=== PATIENT | male | born 1960 | race Caucasian/White ===

== ENCOUNTER 2016-12-06 21:48 | Inpatient (IN) | payer OTHER ==
[2016-12-06] MEDS ORDERED: METHYLPREDNISOLONE INJ 125 MG/2 ML SDV IV ONE (22:00)
[2016-12-06] MEDS ORDERED: DIPHENHYDRAMINE HCL 50 MG/ML VIAL IV ONE (22:00)
[2016-12-06] MEDS ORDERED: MAGNESIUM SULFATE/D5W 1 GM/100 ML RTUPB IV ONE (22:00)
[2016-12-06] MEDS ORDERED: NORMAL SALINE 1000 ML 1,000 ML IV PRN (22:01)
[2016-12-06] MEDS ORDERED: EPINEPHRINE INJ 30 MG/30 ML VIAL ONE (22:10)
[2016-12-06] MEDS ORDERED: EPINEPHRINE INJ 1 MG/10 ML DISP.SYRIN ONE (22:11)
[2016-12-06] MEDS ORDERED: EPINEPHRINE INJ/PF 1 MG/1 ML AMPULE IM PRN (22:45)
[2016-12-06 22:49] LABS: ABSOLUTE LYMPHOCYTES (AUTO) 2.1 10^3/uL (0.5-4.7); ABSOLUTE MONOCYTES (AUTO) 0.7 10^3/uL (0.1-1.4); BASOPHILS % (AUTO) 0.3 % (0-2); EOSINOPHILS % (AUTO) 0.3 % (0-6); HEMATOCRIT 41.6 % (37.9-51.0); HEMOGLOBIN 14.3 g/dL (13.5-17.0); HGB HCT DIFFERENCE 1.3; LYMPHOCYTES % (AUTO) 19.1 % (13-45); MEAN CORPUSCULAR HGB CONC 34.4 g/dL (32.0-36.0); MEAN CORPUSCULAR VOLUME 96 fl (80-97); MONOCYTES % (AUTO) 6.6 % (3-13); RED BLOOD COUNT 4.34 10^6/uL (4.35-5.55); RED CELL DISTRIBUTION WIDTH 12.7 % (11.5-14.0); SEGMENTED NEUTROPHILS % (AUTO) 73.7 % (42-78); WHITE BLOOD COUNT 10.8 10^3/uL (4.0-10.5)
[2016-12-06 22:53] LABS: ALANINE AMINOTRANSFERASE 29 U/L (21-72); ALBUMIN 3.3 g/dL (3.5-5.0); ALKALINE PHOSPHATASE 52 U/L (38-126); ANION GAP 10 (5-19); ASPARTATE AMINO TRANSFERASE 19 U/L (17-59); BILIRUBIN,DIRECT 0.3 mg/dL (0.0-0.4); BILIRUBIN,TOTAL 0.3 mg/dL (0.2-1.3); BLOOD UREA NITROGEN 19 mg/dL (7-20); CARBON DIOXIDE 17 mmol/L (22-30); CHLORIDE 111 mmol/L (98-107); CREATINE KINASE 163 U/L (55-170); CREATININE RESULT 0.93 mg/dL (0.52-1.25); GLUCOSE 114 mg/dL (75-110); POTASSIUM 3.3 mmol/L (3.6-5.0); SODIUM 137.8 mmol/L (137-145); TOTAL PROTEIN 5.6 g/dL (6.3-8.2)
[2016-12-06 23:05] LABS: CREATINE KINASE MB 0.99 ng/mL (<4.55)
[2016-12-06 23:06] LABS: TROPONIN I < 0.012 ng/mL
[2016-12-07] MEDS ORDERED: DIPHENHYDRAMINE HCL 50 MG/ML VIAL IV ONE (02:32)
--- NOTE | 2016-12-07 03:05 | ER Document Report ---
ED General - General Chief Complaint: Allergic Reaction Stated Complaint: POSSIBLE ALLERGIC REACTION Time Seen by Provider: 12/06/16 21:58 Mode of Arrival: Medic Information source: Patient Notes: 56-year-old man presents with anaphylaxis. The patient states he was cleaning shrimp and correct his left finger and noted that his fingers seem to get red. Later, he ate the shrimp for dinner and afterwards started to get itching, redness and then felt faint. He called EMS and EMS reported the patient having a blood pressure 80/60 and he was pale. They gave him 1200 cc of IV fluid and IV Pepcid and the patient had taken his own Benadryl before EMS arrived. They transported the patient to the emergency room. Initially, in the emergency room the patient had a stable blood pressure. He never complained of any difficulty swallowing or difficulty breathing. He thought that his lips were tingling. - HPI Onset: Just prior to arrival Onset/Duration: Sudden Quality of pain: No pain Severity: None Pain Level: Denies Associated symptoms: denies: Chest pain, Fever, Nausea, Vomiting, Shortness of breath Exacerbated by: Denies Relieved by: Denies Similar symptoms previously: No Recently seen / treated by doctor: No Past Medical History - General Information source: Patient - Social History Smoking Status: Smoker,Current Status Unk Cigarette use (# per day): Yes - 1 pack per day Chew tobacco use (# tins/day): No Frequency of alcohol use: Rare Drug Abuse: None Lives with: Family Family History: None Patient has suicidal ideation: No Patient has homicidal ideation: No - Medical History Medical History: Negative Surgical Hx: Negative Review of Systems - Review of Systems Constitutional: denies: Chills, Fever EENT: No symptoms reported Cardiovascular: See HPI Respiratory: No symptoms reported Gastrointestinal: No symptoms reported Genitourinary: No symptoms reported Male Genitourinary: No symptoms reported Musculoskeletal: No symptoms reported Skin: No symptoms reported Hematologic/Lymphatic: No symptoms reported Neurological/Psychological: No symptoms reported Physical Exam - Vital signs Vitals: Resp BP Pulse Ox 15 109/71 99 12/06/16 22:45 12/06/16 22:45 12/06/16 22:45 Notes: Physical exam: GENERAL: 56-year-old man, alert and oriented 3, no acute distress HEAD: Atraumatic, normocephalic. EYES: Pupils equal round and reactive to light, extraocular movements intact, sclera anicteric, conjunctiva are normal. ENT: No obvious swelling about the mouth or lips, nares patent, oropharynx clear without exudates. No swelling below the tongue. Moist mucous membranes. NECK: Normal range of motion, supple without lymphadenopathy. No stridor. LUNGS: Breath sounds clear to auscultation bilaterally and equal. No wheezes rales or rhonchi. HEART: Regular rate and rhythm without murmurs, rubs or gallops. ABDOMEN: Soft, normoactive bowel sounds. No tenderness to palpation. No guarding, no rebound. No masses appreciated. EXTREMITIES: Normal range of motion, no pitting or edema. No clubbing or cyanosis. NEUROLOGICAL: Cranial nerves II through XII grossly intact. Normal speech, normal gait. PSYCH: Normal mood, normal affect. SKIN: Warm, Dry, normal turgor, no rashes or lesions noted. Course - Re-evaluation Re-evalutation: 12/07/16 03:09 Shortly after my evaluation, the patient did become hypotensive and he was given 0.3 mg of epinephrine IM. His blood pressure was noted to be labile after that he was put on an IV epinephrine drip. Patient seemed to stabilize and was weaned off the epi drip and observed for a few hours. After a few hours , he started to complain of itching of his feet. He was given 25 mg of Benadryl and his blood pressure did go significantly lower (70 systolic) which was probably the anaphylaxis coming back. He was restarted on epinephrine drip. The patient does not complain of any chest pain, shortness of breath. He looks good on exam. He has thus far received: By EMS: IV Pepcid, 1200 cc IV fluids In the ER: IV Benadryl, IV Solu-Medrol, IM epi, IV epi drip, IV fluids, IV magnesium I discussed the case with Dr. Chavarria who will admit the patient to the ICU for anaphylaxis - Vital Signs Vital signs: Temp Pulse Resp BP Pulse Ox 15 109/69 96 12/07/16 03:39 12/07/16 03:39 12/07/16 03:39 - Laboratory Result Diagrams: 12/06/16 22:00 12/06/16 22:00 Laboratory results interpreted by me: 12/06/16 12/06/16 22:00 22:00 WBC 10.8 H RBC 4.34 L Potassium 3.3 L Chloride 111 H Carbon Dioxide 17 L Glucose 114 H Calcium 8.0 L Total Protein 5.6 L Albumin 3.3 L - Diagnostic Test Radiology reviewed: Image reviewed, Reports reviewed - EKG Interpretation by Me Rate: Normal Rhythm: NSR - EKG shows normal sinus rhythm with a ventricular rate of 76, QTc 491, no ST elevation or depression. Critical Care Note - Critical Care Note Total time excluding time spent on procedures (mins): 90 Discharge - Discharge Clinical Impression: Anaphylaxis Condition: Serious Disposition: ADMITTED INPATIENT Admitting Provider: Hospitalist - Dr. Chavarria Unit Admitted: ICU
[2016-12-07] MEDS: NORMAL SALINE 1000 ML 1,000 ML IV SCH ×2 (03:20→04:21)
[2016-12-07] MEDS: POTASSI CL 20 MEQ/50 ML RIDER 20 MEQ/50 ML RTUPB IV SCH ×2 (03:36→06:12)
[2016-12-07 04:24] LABS: ANION GAP 8 (5-19); BLOOD UREA NITROGEN 22 mg/dL (7-20); CALCIUM 8.2 mg/dL (8.4-10.2); CARBON DIOXIDE 16 mmol/L (22-30); CHLORIDE 115 mmol/L (98-107); CREATININE RESULT 0.77 mg/dL (0.52-1.25); GLUCOSE 149 mg/dL (75-110); SODIUM 138.9 mmol/L (137-145)
[2016-12-07 04:32] LABS: POTASSIUM 4.3 mmol/L (3.6-5.0)
[2016-12-07 04:34] LABS: ABSOLUTE LYMPHOCYTES (AUTO) 0.5 10^3/uL (0.5-4.7); ABSOLUTE MONOCYTES (AUTO) 0.2 10^3/uL (0.1-1.4); ABSOLUTE NEUT (AUTO) 9.5 10^3/uL (1.7-8.2); BASOPHILS % (AUTO) 0.1 % (0-2); HEMATOCRIT 42.9 % (37.9-51.0); HEMOGLOBIN 14.9 g/dL (13.5-17.0); HGB HCT DIFFERENCE 1.8; LYMPHOCYTES % (AUTO) 5.1 % (13-45); MEAN CORPUSCULAR HEMOGLOBIN 32.7 pg (27.0-33.4); MEAN CORPUSCULAR HGB CONC 34.7 g/dL (32.0-36.0); MEAN CORPUSCULAR VOLUME 94 fl (80-97); MONOCYTES % (AUTO) 1.6 % (3-13); RED BLOOD COUNT 4.55 10^6/uL (4.35-5.55); RED CELL DISTRIBUTION WIDTH 12.8 % (11.5-14.0); SEGMENTED NEUTROPHILS % (AUTO) 93.2 % (42-78); WHITE BLOOD COUNT 10.2 10^3/uL (4.0-10.5)
[2016-12-07 04:35] LABS: CREATINE KINASE MB 0.84 ng/mL (<4.55)
[2016-12-07 04:37] LABS: TROPONIN I < 0.012 ng/mL
[2016-12-07] MEDS ORDERED: DIPHENHYDRAMINE HCL 50 MG/ML VIAL IV PRN (05:17)
--- NOTE | 2016-12-07 05:17 | PDOC H&P ---
History of Present Illness Admission Date/PCP: 12/07/16 03:22 Patient complains of: Allergic reaction History of Present Illness: JANAY ADAMS is a 56 year old male without past medical history with exception to tobacco dependence and has been in his usual state of health until approximately 1 hour prior to presentation noting swelling erythema and rash initially to his finger while cleaning trip. This rash became diffuse and widespread including the lips prompting him to take Benadryl. He felt faint with palpitations denying shortness of breath or stridor. EMS reports a blood pressure of 80/60 and tachycardia he receives at 1200 mL bolus of saline, IV Pepcid. In the emergency room he receives IV Solu-Medrol and has repeated episodes of profound hypotension of 70 over palp he started on IV epinephrine resulting in improvement he is referred to the hospitalist for admission. Patient denies previous episode, no new medications and is otherwise felt well. Past Medical History Medical History: None Social History Information Source: Patient Lives with: Family Smoking Status: Current Every Day Smoker Cigarettes Packs Per Day: 1 Number of Years Smokin Frequency of Alcohol Use: None Drugs: None - Advance Directive Resuscitation Status: Full Code Family History Family History: Hypertension Parental Family History Reviewed: Yes Children Family History Reviewed: Yes Sibling(s) Family History Reviewed.: Yes Physical Exam Vital Signs: Temp Pulse Resp BP Pulse Ox 15 109/69 96 12/07/16 03:39 12/07/16 03:39 12/07/16 03:39 Intake & Output 12/05/16 12/06/16 12/07/16 11:59 11:59 11:59 Weight 93 kg Results Laboratory Results: 12/07/16 03:54 12/07/16 03:54 12/07/16 12/07/16 03:54 03:54 WBC 10.2 RBC 4.55 Hgb 14.9 Hct 42.9 MCV 94 MCH 32.7 MCHC 34.7 RDW 12.8 Plt Count 201 Seg Neutrophils % 93.2 H Lymphocytes % 5.1 L Monocytes % 1.6 L Eosinophils % 0.0 Basophils % 0.1 Absolute Neutrophils 9.5 H Absolute Lymphocytes 0.5 Absolute Monocytes 0.2 Absolute Eosinophils 0.0 Absolute Basophils 0.0 Sodium 138.9 Potassium 4.3 D Chloride 115 H Carbon Dioxide 16 L Anion Gap 8 BUN 22 H Creatinine 0.77 Est GFR ( Amer) > 60 Est GFR (Non-Af Amer) > 60 Glucose 149 H Calcium 8.2 L 12/07/16 12/07/16 03:54 03:54 Creatine Kinase 127 CK-MB (CK-2) 0.84 Troponin I < 0.012 Assessment & Plan - Diagnosis (1) Anaphylaxis Is this a current diagnosis for this admission?: Yes Plan: Secondary to shrimp, ICU admission IV fluid challenge, continuing Solu-Medrol, Pepcid, Benadryl and IV epinephrine. (2) Hypotension Is this a current diagnosis for this admission?: Yes Plan: Secondary to #1 IV fluid challenge and epinephrine support. (3) Tobacco abuse Is this a current diagnosis for this admission?: Yes Plan: Tobacco Dependence patient received tobacco cessation counseling and offered nicotine replacement options - Time Time Spent: 30 to 50 Minutes - Inpatient Certification Medical Necessity: Need Close Monitoring Due to Risk of Patient Decompensation
[2016-12-07] MEDS ORDERED: FAMOTIDINE INJ/PF 20 MG/2 ML SDV IV SCH (05:30)
[2016-12-07] MEDS: METHYLPREDNISOLONE INJ 125 MG/2 ML SDV IV SCH ×3 (06:10→22:12)
[2016-12-07] MEDS: HEPARIN SOD (PORCINE) 5,000 UNIT/ML 1 ML SYRINGE SUBCUT SCH ×3 (06:11→22:13)
--- NOTE | 2016-12-07 07:56 | EKG REPORT ---
SEVERITY:- ABNORMAL ECG - SINUS RHYTHM INCOMPLETE RIGHT BUNDLE BRANCH BLOCK : Confirmed by: Margarito Mondragon MD 07-Dec-2016 07:55:54
[2016-12-07] MEDS: IPRATROPIUM/ALBUTEROL 0.5-2.5 MG/3 ML AMPUL NEB SCH ×3 (08:29→19:36)
[2016-12-07] MEDS ORDERED: DIPHENHYDRAMINE HCL 25 MG CAPSULE PO ONE (08:30)
[2016-12-07] MEDS: FAMOTIDINE INJ/PF 20 MG/2 ML SDV IV SCH ×2 (09:58→22:12)
[2016-12-07] MEDS: DOXYCYCLINE HYCLATE 100 MG TABLET PO SCH ×2 (09:58→22:12)
[2016-12-07 12:22] LABS: CREATINE KINASE MB 0.82 ng/mL (<4.55)
[2016-12-07 12:28] LABS: TROPONIN I < 0.012 ng/mL
[2016-12-07] MEDS: DIPHENHYDRAMINE HCL 25 MG CAPSULE PO SCH ×3 (13:25→23:20)
--- NOTE | 2016-12-07 14:57 | RADIOLOGY REPORT (SQ) ---
EXAM DESCRIPTION: CHEST SINGLE VIEW COMPLETED DATE/TIME: 12/06/2016 10:55 pm REASON FOR STUDY: anaphylaxis COMPARISON: None. TECHNIQUE: Frontal radiographic views of the chest acquired. NUMBER OF VIEWS: 1 LIMITATIONS: None. FINDINGS: LUNGS AND PLEURA: Minimal subsegmental atelectasis in the left lung base. No consolidatio n, pleural effusion , or pneumothorax. MEDIASTINUM AND HILAR STRUCTURES: No masses or contour abnormalities. HEART AND VASCULATURE: Heart normal size. No evidence for failure. BONY STRUCTURES: No acute findings. HARDWARE: None. OTHER: No other significant finding. IMPRESSION: Minimal subsegmental atelectasis in the left lung base. TECHNICAL DOCUMENTATION: JOB ID: [id number]
--- NOTE | 2016-12-07 16:05 | PDOC PROGRESS REPORT ---
Subjective Progress Note for:: 12/07/16 Subjective:: Patient seen earlier today on morning rounds. Off Epi ggt since 0300 No further hypotension, stridor, urticaria or rash Physical Exam Vital Signs: Temp Pulse Resp BP Pulse Ox 99.0 F 63 16 129/70 H 98 12/07/16 12:42 12/07/16 14:20 12/07/16 14:20 12/07/16 12:42 12/07/16 14:20 Intake & Output 12/06/16 12/07/16 12/08/16 06:59 06:59 06:59 Weight 93 kg 78.2 kg Exam: General: Awake alert and oriented x3, no acute respiratory distress HEENT: AT/NC, PERRL, EOMI, oropharynx is moist, pink, no scleral icterus, no conjunctival injection Neck: No JVD, trachea midline Chest: scattered bilateral inspiratory and expiratory wheezes CV: Regular rate and rhythm, normal S1 and S2, no murmur, rub, or gallop Abdomen: Soft, nontender to palpation, nondistended, active bowel sounds; no rebound, rigidity, or guarding Extremities: No cyanosis, clubbing or edema Neuro: Cranial nerves II through XII are grossly intact without focal deficits; awake alert and oriented x3 Psych: Normal mood and affect Results Laboratory Results: 12/07/16 03:54 12/07/16 03:54 12/07/16 12/07/16 03:54 03:54 WBC 10.2 RBC 4.55 Hgb 14.9 Hct 42.9 MCV 94 MCH 32.7 MCHC 34.7 RDW 12.8 Plt Count 201 Seg Neutrophils % 93.2 H Lymphocytes % 5.1 L Monocytes % 1.6 L Eosinophils % 0.0 Basophils % 0.1 Absolute Neutrophils 9.5 H Absolute Lymphocytes 0.5 Absolute Monocytes 0.2 Absolute Eosinophils 0.0 Absolute Basophils 0.0 Sodium 138.9 Potassium 4.3 D Chloride 115 H Carbon Dioxide 16 L Anion Gap 8 BUN 22 H Creatinine 0.77 Est GFR ( Amer) > 60 Est GFR (Non-Af Amer) > 60 Glucose 149 H Calcium 8.2 L 12/07/16 12/07/16 12/07/16 03:54 03:54 10:45 Creatine Kinase 127 110 CK-MB (CK-2) 0.84 Troponin I < 0.012 12/07/16 10:45 Creatine Kinase CK-MB (CK-2) 0.82 Troponin I < 0.012 Impressions: Chest X-Ray 12/06/16 22:35 IMPRESSION: Minimal subsegmental atelectasis in the left lung base. Assessment & Plan - Diagnosis (1) COPD with exacerbation Is this a current diagnosis for this admission?: Yes Plan: Continue solumedrol an add doxycycline nebulized treatments (2) Anaphylaxis Qualifiers: Encounter type: subsequent encounter Qualified Code(s): T78.2XXD - Anaphylactic shock, unspecified, subsequent encounter Is this a current diagnosis for this admission?: Yes Plan: Patient suffered shock after eating shellfish (shrimp) and required epi ggt for a time Continue to monitor for delayed reaction On solumedrol, benadryl, pepcid (3) Hypotension Is this a current diagnosis for this admission?: Yes (4) Tobacco abuse Is this a current diagnosis for this admission?: Yes Plan: encourage cessation offered nicotine patch and declined - Time Time Spent with patient: 25-34 minutes Medications reviewed and adjusted accordingly: Yes Anticipated discharge: Home Within: within 24 hours
[2016-12-07 16:30] LABS: CREATINE KINASE MB 0.81 ng/mL (<4.55)
[2016-12-07 16:31] LABS: TROPONIN I < 0.012 ng/mL
[2016-12-08] MEDS: IPRATROPIUM/ALBUTEROL 0.5-2.5 MG/3 ML AMPUL NEB SCH ×2 (01:13→08:04)
[2016-12-08 04:51] LABS: ABSOLUTE LYMPHOCYTES (AUTO) 0.7 10^3/uL (0.5-4.7); ABSOLUTE MONOCYTES (AUTO) 0.3 10^3/uL (0.1-1.4); BASOPHILS % (AUTO) 0.1 % (0-2); HEMATOCRIT 38.6 % (37.9-51.0); HEMOGLOBIN 13.1 g/dL (13.5-17.0); HGB HCT DIFFERENCE 0.7; LYMPHOCYTES % (AUTO) 6.4 % (13-45); MEAN CORPUSCULAR HEMOGLOBIN 32.7 pg (27.0-33.4); MEAN CORPUSCULAR VOLUME 96 fl (80-97); MONOCYTES % (AUTO) 2.5 % (3-13); RED CELL DISTRIBUTION WIDTH 13.1 % (11.5-14.0)
[2016-12-08 05:10] LABS: ANION GAP 11 (5-19); BLOOD UREA NITROGEN 15 mg/dL (7-20); CALCIUM 9.4 mg/dL (8.4-10.2); CARBON DIOXIDE 18 mmol/L (22-30); CHLORIDE 114 mmol/L (98-107); CREATININE RESULT 0.79 mg/dL (0.52-1.25); GLUCOSE 191 mg/dL (75-110); POTASSIUM 4.1 mmol/L (3.6-5.0); SODIUM 142.8 mmol/L (137-145)
[2016-12-08] MEDS: DIPHENHYDRAMINE HCL 25 MG CAPSULE PO SCH (06:49)
[2016-12-08] MEDS: METHYLPREDNISOLONE INJ 125 MG/2 ML SDV IV SCH (06:49)
[2016-12-08] MEDS: HEPARIN SOD (PORCINE) 5,000 UNIT/ML 1 ML SYRINGE SUBCUT SCH (06:50)
--- NOTE | 2016-12-08 09:21 | PDOC DISCHARGE SUMMARY ---
General - Admit/Disc Date/PCP Admission Date/Primary Care Provider: 12/07/16 02:56 Discharge Date: 12/08/16 - Discharge Diagnosis (1) Anaphylaxis Is this a current diagnosis for this admission?: Yes (2) COPD with exacerbation Is this a current diagnosis for this admission?: Yes (3) Hypotension Is this a current diagnosis for this admission?: Yes (4) Tobacco abuse Is this a current diagnosis for this admission?: Yes - Additional Information Resuscitation Status: Do Not Resuscitate Discharge Diet: Regular Discharge Activity: Activity As Tolerated Home Medications: Albuterol Sulfate [Proair HFA] 1 - 2 puff IH Q4HP PRN #1 inhaler 12/08/16 Diphenhydramine HCl [Benadryl 25 mg Capsule] 25 mg PO Q6HP PRN #30 capsule 12/08 Doxycycline Hyclate [Vibramycin 100 mg Tablet] 100 mg PO Q12 #20 tablet Epinephrine [Epipen 2-Izaiah] 0.3 mg IM ASDIR PRN #1 ml 12/08/16 Methylprednisolone [Medrol Dosepack (4 mg/Tab) 21 Tab/Dosepak] 4 mg PO ASDIR PRN #21 tab.ds.pk 12/08/16 History of Present Illness History of Present Illness: JANAY ADAMS is a 56 year old male without past medical history with exception to tobacco dependence and has been in his usual state of health until approximately 1 hour prior to presentation noting swelling erythema and rash initially to his finger while cleaning trip. This rash became diffuse and widespread including the lips prompting him to take Benadryl. He felt faint with palpitations denying shortness of breath or stridor. EMS reports a blood pressure of 80/60 and tachycardia he receives at 1200 mL bolus of saline, IV Pepcid. In the emergency room he receives IV Solu-Medrol and has repeated episodes of profound hypotension of 70 over palp he started on IV epinephrine resulting in improvement he is referred to the hospitalist for admission. Patient denies previous episode, no new medications and is otherwise felt well. Hospital Course Hospital Course: Patient had his epinephrine ggt turned off at 0300. Patient had no recurrence of shortness of breath or hypotension. Patient did have some wheezing and this improved with steroids and scheduled nebulized treatments. Patient also started on doxycycline for his COPD exacerbation. Patient has been counselled to stop smoking and to avoid shellfish and its derivatives. Teach back method employed successfully. Patient given prescription for Epi pen. Physical Exam Vital Signs: Temp Pulse Resp BP Pulse Ox 97.9 F 79 16 133/70 H 97 12/08/16 07:08 12/08/16 08:06 12/08/16 08:06 12/08/16 07:08 12/08/16 08:06 Intake & Output 12/07/16 12/08/16 12/09/16 06:59 06:59 06:59 Intake Total 1057 Balance 1057 Weight 93 kg 78.2 kg Exam: General: Awake alert and oriented x3, no acute respiratory distress HEENT: AT/NC, PERRL, EOMI, oropharynx is moist, pink, no scleral icterus, no conjunctival injection Neck: No JVD, trachea midline Chest: CTAB, prolonged expiratory phase CV: Regular rate and rhythm, normal S1 and S2, no murmur, rub, or gallop Abdomen: Soft, nontender to palpation, nondistended, active bowel sounds; no rebound, rigidity, or guarding Extremities: No cyanosis, clubbing or edema Neuro: Cranial nerves II through XII are grossly intact without focal deficits; awake alert and oriented x3 Psych: Normal mood and affect Results Laboratory Results: 12/08/16 04:10 12/08/16 04:10 12/08/16 12/08/16 04:10 04:10 WBC 11.0 H RBC 4.00 L Hgb 13.1 L Hct 38.6 MCV 96 MCH 32.7 MCHC 34.0 RDW 13.1 Plt Count 185 Seg Neutrophils % 91.0 H Lymphocytes % 6.4 L Monocytes % 2.5 L Eosinophils % 0.0 Basophils % 0.1 Absolute Neutrophils 10.0 H Absolute Lymphocytes 0.7 Absolute Monocytes 0.3 Absolute Eosinophils 0.0 Absolute Basophils 0.0 Sodium 142.8 Potassium 4.1 Chloride 114 H Carbon Dioxide 18 L Anion Gap 11 BUN 15 Creatinine 0.79 Est GFR ( Amer) > 60 Est GFR (Non-Af Amer) > 60 Glucose 191 H Calcium 9.4 12/07/16 12/07/16 12/07/16 03:54 03:54 10:45 Creatine Kinase 127 110 CK-MB (CK-2) 0.84 Troponin I < 0.012 12/07/16 12/07/16 12/07/16 10:45 15:55 15:55 Creatine Kinase 102 CK-MB (CK-2) 0.82 0.81 Troponin I < 0.012 < 0.012 Impressions: Chest X-Ray 12/06/16 22:35 IMPRESSION: Minimal subsegmental atelectasis in the left lung base. Qualifiers PATEINT BEING DISCHARGED WITH ANY OF THE FOLLOWING DIAGNOSIS?: No Plan Time Spent: Less than 30 Minutes
[2016-12-08 09:23] VITALS: BP 129/70
[2016-12-08] MEDS: DOXYCYCLINE HYCLATE 100 MG TABLET PO SCH (09:55)
== END 2016-12-08 10:00 | disposition home or self-care (01) | DRG 916 ==
LOC: ER 21:48 → EH 12-07 02:56 → UNDOADMIN 12-07 03:22 → EH 12-07 03:22 → 3N 12-07 12:27
PROVIDERS: ADMIT Internal Medicine; ATTEND Internal Medicine
PROC: 3E0F73Z Introduction of Anti-inflammatory into Respiratory Tract, Via Natural or Artificial Opening (ICD-10-PCS; principal; 2016-12-07)
DX: T78.02XA Anaphylactic reaction due to shellfish (crustaceans), initial encounter (principal); J44.1 Chronic obstructive pulmonary disease with (acute) exacerbation; I95.9 Hypotension, unspecified; F17.210 Nicotine dependence, cigarettes, uncomplicated; Z79.899 Other long term (current) drug therapy; Z82.49 Family history of ischemic heart disease and other diseases of the circulatory system
CPT/HCPCS: 36415; 71010; 80048; 80053; 82550; 82553; 84484; 85025; 93005; 93010; 96361; 96372; 96374; 96375; 96376; 99291; 99292; J0171; J1200; J1644; J2930; J3480; J7030; J7620; S0028